=== PATIENT | male | born 1985 | race African-American/Black ===

== ENCOUNTER 2024-07-26 09:06 | Emergency (ER) | payer SELFPAY ==
[~2024-07-26] VITALS: Ht 185.4 cm; Wt 87.0 kg
[2024-07-26 09:08] VITALS: TEMP 36.6; O2SAT 97
[2024-07-26] MEDS ORDERED: LIDOCAINE 5% PATCH TOP SCH (09:45)
[2024-07-26 10:30] VITALS: PULSE 78
[2024-07-26] MEDS: KETOROLAC 15MG/ML VIAL IM ONE (10:30)
[2024-07-26 10:36] VITALS: BP 131/90; RESP 16
[2024-07-26] MEDS: LIDOCAINE 5% PATCH TOP NR (10:36)
[2024-07-26] MEDS ORDERED: METH-653 MT (11:12)
[2024-07-26] MEDS ORDERED: LIDO700A30 TP (11:12)
[2024-07-26] MEDS ORDERED: IBUP-2029 MT (11:12)
== END 2024-07-26 11:36 | disposition home or self-care (01) ==
LOC: ER 09:06
DX: M51.360 Other intervertebral disc degeneration, lumbar region with discogenic back pain only (principal); I10 Essential (primary) hypertension; Z79.899 Other long term (current) drug therapy
CPT/HCPCS: 72100; 96372; 99283; J1885; Z7610